=== PATIENT | male | born 1960 | race Caucasian/White ===

== ENCOUNTER 2016-08-08 07:03 | Emergency (ER) | payer MEDICAID ==
[~2016-08-08] VITALS: Ht 172.7 cm; Wt 88.0 kg
[2016-08-08 07:06] VITALS: BP 151/101
[2016-08-08] MEDS ORDERED: ASPI-515 PO (07:25)
[2016-08-08] MEDS ORDERED: SODIUM CHLORIDE 0.9% 1,000ML IVBOLUS ONE ×2 (07:30→09:00)
[2016-08-08] MEDS ORDERED: SODIUM CHLORIDE FLUSH 10ML SYR IVF ONE (07:30)
[2016-08-08] MEDS ORDERED: ASPIRIN 81 MG TABLET CHEW PO ONE (07:30)
[2016-08-08 07:43] LABS: HEMOGLOBIN 14.6 g/dL (13.7-18.0)
[2016-08-08 07:53] LABS: ASPARTATE AMINO TRANSFERASE 18 U/L (15-37); BLOOD UREA NITROGEN 9 mg/dL (7-18)
[2016-08-08] MEDS ORDERED: ASPIRIN 81 MG TABLET CHEW ONE (07:54)
[2016-08-08 08:06] LABS: DIFF TOTAL CELLS COUNTED 100 CELL DIFF
[2016-08-08 08:07] LABS: VERIFY COUNTS? YES
[2016-08-08] MEDS ORDERED: ONDANSETRON 2MG/ML, 2ML IVPush ONE (09:00)
[2016-08-08] MEDS ORDERED: CEFTRIAXONE PMX 1GM/50ML 50 ML IVPB ONE (09:00)
[2016-08-08] MEDS ORDERED: ATROPINE 0.4 MG/ML, 1ML IVPush ONE (09:00)
[2016-08-08] MEDS ORDERED: AZITHROMYCIN 500 MG in SODIUM CHLORIDE 0.9% 250 ML IVPB ONE (09:00)
[2016-08-08] MEDS ORDERED: CEFTRIAXONE PMX 1GM/50ML 50 ML ONE (09:43)
[2016-08-08] MEDS ORDERED: AZITHROMYCIN 500 MG TABLET ONE (10:33)
[2016-08-08] MEDS ORDERED: AZITHROMYCIN 500 MG TABLET PO ONE (11:00)
[2016-08-08] MEDS ORDERED: OMNIPAQUE 350 MG/ML, 100ML BOTTLE ONE (13:04)
== END 2016-08-08 10:58 | disposition home or self-care (01) ==
LOC: ED 10:56
DX: J15.9 Unspecified bacterial pneumonia (principal)
CPT/HCPCS: 36415; 71020; 71275; 80053; 83605; 85025; 85379; 87040; 93005; 96361; 96365; 99285; J0696; J7030; Q9967

== ENCOUNTER 2020-02-05 23:30 | Emergency (ER) | payer MEDICAID ==
[~2020-02-05] VITALS: Ht 172.7 cm; Wt 81.8 kg
[~2020-02-05 23:30] MED LIST: ASPI-515 PO
--- NOTE | 2020-02-05 23:36 | NUR ---
[employer]ER: EKG DONE IN TRIAGE
--- NOTE | 2020-02-05 23:58 | NUR ---
Pt arrives to ed with sob. He report that the sob gets worse after the end of his shift. Pt reports that his shoulder also has sharp pains. Pt reports no chest pain. Pt denies significant medical hx. Reports an increase in energy drink consumption. Pt denies any recent trauma. Pt reports he left work today due to sob. Pt connected to [facility] and [facility], Gautam GARCIA placing PIV. Pts vitals at this time are wnl. Bedside report to Niels ERIC, informed pt needs cardiac monitoring still. Awaiting further orders.
--- NOTE | 2020-02-05 23:59 | NUR ---
REPORT RECIEVED FROM PRATEEK ERIC, THIS RN TO ASSUME CARE OF PT.
[2020-02-06] MEDS ORDERED: SODIUM CHLORIDE 0.9% 1,000ML IVBOLUS ONE
[2020-02-06] MEDS ORDERED: SODIUM CHLORIDE FLUSH 10ML SYR IVF ONE
--- NOTE | 2020-02-06 00:23 | NUR ---
PT MEDICATED PER EMAR, ORTHOSTATIC BP'S TAKEN, PLACED ON CARDIAC MONITORS. PT STATES NO ISSUES AT THIS TIME, DENIES SOB AT THIS TIME
[2020-02-06 00:31] LABS: ALANINE AMINOTRANSFERASE 19 U/L (12-78); ALBUMIN 3.2 g/dL (3.4-5.0); ANION GAP 5 mmol/L (5-15); CALCIUM 8.6 mg/dL (8.5-10.1); CHLORIDE 112 mmol/L (98-107)
[2020-02-06 00:36] LABS: ALKALINE PHOSPHATASE 84 U/L (45-117); BILIRUBIN,TOTAL 0.3 mg/dL (0.2-1.0); CREATININE 1.02 mg/dL (0.7-1.3); TOTAL PROTEIN 6.3 g/dL (6.4-8.2); TROPONIN I < 0.015 ng/mL (0.000-0.045)
[2020-02-06 00:49] LABS: BASOPHILS # (AUTO) 0.03 x10^3/uL (0-0.1); BASOPHILS % (AUTO) 1 % (0-1); EOSINOPHILS # (AUTO) 0.19 x10^3/uL (0-0.4); EOSINOPHILS % (AUTO) 3 % (1-7); LYMPHOCYTES # (AUTO) 1.33 x10^3/uL (1-3.4); LYMPHOCYTES % (AUTO) 18 % (22-44); MD NO; MEAN CORPUSCULAR HEMOGLOBIN 27.1 pg (27.5-34.5); MEAN CORPUSCULAR HGB CONC 32.3 g/dL (33.2-36.2); MEAN PLATELET VOLUME 7.8 fL (7.4-10.4); MONOCYTES # (AUTO) 0.88 x10^3/uL (0.2-0.8); MONOCYTES % (AUTO) 12 % (2-9); NEUTROPHILS # (AUTO) 4.95 x10^3/uL (1.8-6.8); NEUTROPHILS % (AUTO) 67 % (42-75); PLATELET COUNT 330 x10^3/uL (130-400); RED BLOOD COUNT 4.04 x10^6/uL (4.38-5.82)
[2020-02-06 01:35] VITALS: BP 134/87
== END 2020-02-06 01:37 | disposition home or self-care (01) ==
LOC: ED 02-06 01:29
DX: R42 Dizziness and giddiness (principal); R55 Syncope and collapse; R06.00 Dyspnea, unspecified; R53.1 Weakness; R06.02 Shortness of breath; R07.89 Other chest pain
CPT/HCPCS: 36415; 71045; 80053; 83880; 84484; 85025; 93005; 96360; 99285; J7030